=== PATIENT | male | born 1950 | race Caucasian/White ===

== ENCOUNTER → 2022-03-09 | Outpatient (CLI) | payer OTHER ==
[2022-03-09 19:37] LABS: THYROID STIMULATING HORMONE 0.812 uIU/ML (0.358-3.740)
[2022-03-09 20:07] LABS: FOLATE 11.4 NG/ML (>5.4)
== END ==
LOC: M WUC 15:39
PROVIDERS: ATTEND Psychiatry & Neurology Neurology
DX: R41.3 Other amnesia (principal); E03.9 Hypothyroidism, unspecified; E53.8 Deficiency of other specified B group vitamins